=== PATIENT | male | born 1950 | race Caucasian/White ===

== ENCOUNTER → 2023-08-26 08:58 | Outpatient (REF) | payer MEDICARE, OTHER, SELFPAY ==
[2023-08-26 13:07] LABS: % Basophils 0.9 % (0-2); % Eosinophils 2.2 % (0-6); % Immature Granulocytes 0.4 % (0-0.5); % Lymphocytes 16.2 % (20.5-51.1); % Monocytes 7.8 % (1.7-9.3); % Neutrophils 72.5 % (42.2-75.2); Absolute Basophils 0.1 10^3/uL (0-0.2); Absolute Eosinophils 0.2 10^3/uL (0-0.7); Absolute Lymphocytes 1.8 10^3/uL (1.2-3.4); Absolute Monocytes 0.9 10^3/uL (0.1-0.6); Absolute Neutrophils 8.1 10^3/uL (1.4-6.5); Hematocrit 43.6 % (39.0-52.0); Hemoglobin 14.1 g/dL (13.0-18.0); Mean Corp Hgb Conc. 32.3 g/dL (33.0-37.0); Mean Corpuscular Hgb 32.6 pg (27.0-31.0); Mean Corpuscular Volume 100.7 fL (80.0-94.0); Mean Platelet Volume 10.5 fL (7.4-10.4); Nucleated Red Blood Cells % 0 % (-); Platelet Count 199 10^3/uL (130-400); Red Blood Cell Count 4.33 10^6/uL (4.70-6.10); Red Cell Dist. Width 14.1 % (11.5-14.5); White Blood Cell Count 11.2 10^3/uL (4.8-10.8)
[2023-08-26 13:35] LABS: ALT (SGPT) 41 U/L (0-50); AST (SGOT) 22 U/L (17-59); Albumin 4.5 g/dl (3.5-5.0); Alkaline Phosphatase 77 U/L (38-126); Blood Urea Nitrogen 11 mg/dl (9-20); Calcium 9.4 mg/dl (8.4-10.2); Carbon Dioxide 27 mmol/L (22-30); Chloride 106 mmol/L (98-107); Glucose 153 mg/dl (70-99); HDL Cholesterol 30 mg/dl; LDL Cholesterol, Calculated 15 mg/dl; Potassium 4.5 mmol/L (3.5-5.1); Sodium 139 mmol/L (135-145); Total Bilirubin 0.4 mg/dl (0.2-1.3); Total Cholesterol 64 mg/dl (50-199); Triglyceride 97 mg/dl (10-149); Very Low Density Lipoprotein 19 mg/dl (0-30); eGFR > 60.00
[2023-08-26 13:53] LABS: Microalbumin, Random Urine 2.6 mg/dl (0.6-1.7)
[2023-08-26 13:54] LABS: Microalbumin/creatinine Ratio 28.6 mg/g
[2023-08-26 14:05] LABS: TSH Reflex To Free T4 3.45 uIU/ml (0.47-4.68)
[2023-08-26 14:15] LABS: Glycohemoglobin (HgbA1c) 7.9 % (4.0-5.6)
== END ==
LOC: HWLAB 08:58
PROVIDERS: ATTENDING PHYSICIAN Nurse Practitioner Adult Health
DX: E11.9 Type 2 diabetes mellitus without complications (principal); K86.1 Other chronic pancreatitis; E03.8 Other specified hypothyroidism; E78.00 Pure hypercholesterolemia, unspecified
CPT/HCPCS: 36415; 80053; 80061; 82043; 82570; 83036; 84443; 85025

== ENCOUNTER → 2023-09-02 11:18 | Outpatient (REF) | payer MEDICARE, OTHER, SELFPAY ==
[2023-09-02 15:45] LABS: % Eosinophils 1.5 % (0-6); % Immature Granulocytes 0.4 % (0-0.5); % Lymphocytes 17.6 % (20.5-51.1); % Monocytes 5.2 % (1.7-9.3); % Neutrophils 74.3 % (42.2-75.2); Absolute Basophils 0.1 10^3/uL (0-0.2); Absolute Eosinophils 0.2 10^3/uL (0-0.7); Absolute Immature Granulocytes 0.1 10^3/uL (0-0.05); Absolute Lymphocytes 2.2 10^3/uL (1.2-3.4); Absolute Monocytes 0.6 10^3/uL (0.1-0.6); Absolute Neutrophils 9.2 10^3/uL (1.4-6.5); Hematocrit 42.9 % (39.0-52.0); Hemoglobin 14.5 g/dL (13.0-18.0); Mean Corp Hgb Conc. 33.8 g/dL (33.0-37.0); Mean Corpuscular Hgb 32.9 pg (27.0-31.0); Mean Corpuscular Volume 97.3 fL (80.0-94.0); Mean Platelet Volume 10.2 fL (7.4-10.4); Nucleated Red Blood Cells % 0 % (-); Platelet Count 206 10^3/uL (130-400); Red Blood Cell Count 4.41 10^6/uL (4.70-6.10); Red Cell Dist. Width 14.1 % (11.5-14.5); White Blood Cell Count 12.4 10^3/uL (4.8-10.8)
[2023-09-02 16:23] LABS: PSA, Total - Screen 0.64 ng/ml (0.0-4.0)
== END ==
LOC: HWLAB 11:18
PROVIDERS: ATTENDING PHYSICIAN Nurse Practitioner Adult Health
DX: D72.829 Elevated white blood cell count, unspecified (principal); Z12.5 Encounter for screening for malignant neoplasm of prostate
CPT/HCPCS: 36415; 85025; G0103

== ENCOUNTER → 2023-09-22 10:54 | Outpatient (REF) | payer MEDICARE, OTHER, SELFPAY | LOC: DHVS 10:54 | PROVIDERS: ATTENDING PHYSICIAN Surgery Vascular Surgery | DX: I77.811 Abdominal aortic ectasia (principal) | CPT/HCPCS: 76770 ==

== ENCOUNTER → 2023-12-05 11:27 | Outpatient (REF) | payer MEDICARE, OTHER, SELFPAY ==
[2023-12-05 15:53] LABS: % Basophils 1.2 % (0-2); % Eosinophils 1.6 % (0-6); % Immature Granulocytes 0.4 % (0-0.5); % Lymphocytes 22.6 % (20.5-51.1); % Monocytes 5.7 % (1.7-9.3); % Neutrophils 68.5 % (42.2-75.2); Absolute Basophils 0.1 10^3/uL (0-0.2); Absolute Eosinophils 0.2 10^3/uL (0-0.7); Absolute Lymphocytes 2.3 10^3/uL (1.2-3.4); Absolute Monocytes 0.6 10^3/uL (0.1-0.6); Absolute Neutrophils 6.9 10^3/uL (1.4-6.5); Hematocrit 40.2 % (39.0-52.0); Hemoglobin 13.5 g/dL (13.0-18.0); Mean Corp Hgb Conc. 33.6 g/dL (33.0-37.0); Mean Corpuscular Hgb 32.4 pg (27.0-31.0); Mean Corpuscular Volume 96.4 fL (80.0-94.0); Mean Platelet Volume 10.8 fL (7.4-10.4); Nucleated Red Blood Cells % 0 % (-); Platelet Count 198 10^3/uL (130-400); Red Blood Cell Count 4.17 10^6/uL (4.70-6.10); Red Cell Dist. Width 13.6 % (11.5-14.5); White Blood Cell Count 10.1 10^3/uL (4.8-10.8)
[2023-12-05 16:03] LABS: ALT (SGPT) 39 U/L (0-50); AST (SGOT) 22 U/L (17-59); Albumin 4.3 g/dl (3.5-5.0); Alkaline Phosphatase 66 U/L (38-126); Blood Urea Nitrogen 11 mg/dl (9-20); Calcium 9.6 mg/dl (8.4-10.2); Carbon Dioxide 25 mmol/L (22-30); Chloride 103 mmol/L (98-107); Glucose 153 mg/dl (70-99); HDL Cholesterol 32 mg/dl; LDL Cholesterol, Calculated 15 mg/dl; Potassium 4.5 mmol/L (3.5-5.1); Sodium 138 mmol/L (135-145); Total Bilirubin 0.5 mg/dl (0.2-1.3); Total Cholesterol 61 mg/dl (50-199); Total Protein 6.5 g/dl (6.3-8.2); Triglyceride 74 mg/dl (10-149); Very Low Density Lipoprotein 14 mg/dl (0-30); eGFR > 60.00
[2023-12-05 16:32] LABS: Microalbumin, Random Urine < 0.6 mg/dl (0.6-1.7); TSH Reflex To Free T4 2.39 uIU/ml (0.47-4.68)
[2023-12-06 09:07] LABS: Glycohemoglobin (HgbA1c) 7.5 % (4.0-5.6)
== END ==
LOC: HWLAB 11:27
PROVIDERS: ATTENDING PHYSICIAN Nurse Practitioner Adult Health
DX: E11.65 Type 2 diabetes mellitus with hyperglycemia (principal); E11.9 Type 2 diabetes mellitus without complications; E03.8 Other specified hypothyroidism; E78.00 Pure hypercholesterolemia, unspecified; K86.1 Other chronic pancreatitis
CPT/HCPCS: 36415; 80053; 80061; 82043; 82570; 83036; 84443; 85025

== ENCOUNTER → 2023-12-12 11:02 | Outpatient (REF) | payer MEDICARE, OTHER, SELFPAY ==
[2023-12-12 15:30] LABS: Amylase 49 U/L (30-110); Lipase 74 U/L (23-300)
[2023-12-14 20:23] LABS: CA 19-9 25 U/mL (<=35)
[2023-12-15 12:02] LABS: 24 Hour Urine Total Volume Random mL; Urine Collection Length Random hr; Urine Free Kappa Light Chains 24.25 mg/L (0.00-32.90); Urine Free Lambda Light Chains 3.39 mg/L (0.00-3.79)
[2023-12-15 21:57] LABS: Albumin 4.48 g/dL (3.75-5.01); Alpha 1 Globulin 0.32 g/dL (0.19-0.46); Alpha 2 Globulin 0.65 g/dL (0.48-1.05); SPEP IFE Reflex Not Done; Total Protein-Electrophoresis 7.4 g/dL (6.3-8.2)
== END ==
LOC: HWLAB 11:02
PROVIDERS: ATTENDING PHYSICIAN Nurse Practitioner Adult Health
DX: K86.1 Other chronic pancreatitis (principal); R63.4 Abnormal weight loss; R91.8 Other nonspecific abnormal finding of lung field; E78.00 Pure hypercholesterolemia, unspecified
CPT/HCPCS: 36415; 82150; 83521; 83690; 84155; 84156; 84165; 86301; 86335

== ENCOUNTER → 2024-03-09 10:41 | Outpatient (REF) | payer MEDICARE, OTHER, SELFPAY ==
[2024-03-09 13:58] LABS: Glycohemoglobin (HgbA1c) 7.7 % (4.0-5.6)
== END ==
LOC: HWLAB 10:41
PROVIDERS: ATTENDING PHYSICIAN Nurse Practitioner Adult Health
DX: E11.65 Type 2 diabetes mellitus with hyperglycemia (principal)
CPT/HCPCS: 36415; 83036

== ENCOUNTER → 2024-03-19 10:41 | Outpatient (REF) | payer MEDICARE, OTHER, SELFPAY | LOC: HWRAD 10:41 | PROVIDERS: ATTENDING PHYSICIAN Internal Medicine Critical Care Medicine; FAMILY PHYSICIAN Nurse Practitioner Adult Health | DX: Z87.891 Personal history of nicotine dependence (principal) | CPT/HCPCS: 71271 ==

== ENCOUNTER → 2024-03-23 14:46 | Outpatient (REF) | payer MEDICARE, OTHER, SELFPAY | LOC: HWRCS 14:46 | PROVIDERS: ATTENDING PHYSICIAN Nurse Practitioner Adult Health | DX: R01.1 Cardiac murmur, unspecified (principal) | CPT/HCPCS: 93306 ==

== ENCOUNTER → 2024-06-07 11:12 | Outpatient (REF) | payer MEDICARE, OTHER, SELFPAY ==
[2024-06-07 13:03] LABS: ALT (SGPT) 40 U/L (0-50); AST (SGOT) 21 U/L (17-59); Albumin 4.3 g/dl (3.5-5.0); Alkaline Phosphatase 58 U/L (38-126); Blood Urea Nitrogen 10 mg/dl (9-20); Calcium 8.9 mg/dl (8.4-10.2); Carbon Dioxide 25 mmol/L (22-30); Chloride 102 mmol/L (98-107); Glucose 170 mg/dl (70-99); HDL Cholesterol 35 mg/dl; LDL Cholesterol, Calculated 18 mg/dl; Potassium 4.5 mmol/L (3.5-5.1); Sodium 137 mmol/L (135-145); Total Bilirubin 0.4 mg/dl (0.2-1.3); Total Cholesterol 65 mg/dl (50-199); Total Protein 6.7 g/dl (6.3-8.2); Triglyceride 64 mg/dl (10-149); Very Low Density Lipoprotein 12 mg/dl (0-30); eGFR > 60.00
[2024-06-07 14:05] LABS: Glycohemoglobin (HgbA1c) 6.7 % (4.0-5.6)
== END ==
LOC: HWLAB 11:12
PROVIDERS: ATTENDING PHYSICIAN Nurse Practitioner Adult Health
DX: E11.65 Type 2 diabetes mellitus with hyperglycemia (principal); E03.8 Other specified hypothyroidism
CPT/HCPCS: 36415; 80053; 80061; 83036; 84443

== ENCOUNTER → 2024-10-02 09:14 | Outpatient (REF) | payer MEDICARE, OTHER, SELFPAY ==
[2024-10-02 13:54] LABS: HDL Cholesterol 38 mg/dl; LDL Cholesterol, Calculated 28 mg/dl; Total Cholesterol 84 mg/dl (50-199); Triglyceride 90 mg/dl (10-149); Very Low Density Lipoprotein 18 mg/dl (0-30)
[2024-10-02 14:08] LABS: Glycohemoglobin (HgbA1c) 6.7 % (4.0-5.6)
== END ==
LOC: HWLAB 09:14
PROVIDERS: ATTENDING PHYSICIAN Nurse Practitioner Adult Health
DX: E11.65 Type 2 diabetes mellitus with hyperglycemia (principal); E78.00 Pure hypercholesterolemia, unspecified
CPT/HCPCS: 36415; 80061; 83036

== ENCOUNTER → 2024-11-12 08:34 | Outpatient (REF) | payer MEDICARE, OTHER, SELFPAY | LOC: HWRAD 08:34 | PROVIDERS: ATTENDING PHYSICIAN Internal Medicine | DX: M54.50 Low back pain, unspecified (principal) | CPT/HCPCS: 72110 ==

== ENCOUNTER 2025-01-14 05:47 | Day surgery (SDC) | payer MEDICARE, OTHER, SELFPAY ==
--- NOTE | 2024-12-20 13:34 | CM ---
Demographics: confirmed
Living situation: Cottages at [facility], single floor living
Support Person Post Operatively:
History of
VN: Yes, currently not on service
SNF: No
Outpatient: [facility] to home
Has patient purchased required equipment: yes
PCP: Dr. bates
[facility]
Post Operative Discharge Plan: Home with , visiting PT from [facility].
[2024-12-26 13:55] VITALS: BMI 22.9
[2024-12-26 13:59] LABS: Hematocrit 39.0 % (39.0-52.0); Hemoglobin 12.9 g/dL (13.0-18.0); Mean Corp Hgb Conc. 33.1 g/dL (33.0-37.0); Mean Corpuscular Volume 99.5 fL (80.0-94.0); Platelet Count 207 10^3/uL (130-400); Red Cell Dist. Width 13.9 % (11.5-14.5)
[2024-12-26 14:47] VITALS: BMI 22.9
[2024-12-26 15:59] LABS: ALT (SGPT) 39 U/L (0-50); AST (SGOT) 19 U/L (17-59); Albumin 4.4 g/dl (3.5-5.0); Alkaline Phosphatase 55 U/L (38-126); Blood Urea Nitrogen 16 mg/dl (9-20); Calcium 9.2 mg/dl (8.4-10.2); Carbon Dioxide 25 mmol/L (22-30); Chloride 102 mmol/L (98-107); Estimated Creatinine Clearance 64 ml/min; Glucose 235 mg/dl (70-99); Potassium 4.2 mmol/L (3.5-5.1); Sodium 136 mmol/L (135-145); Total Protein 6.7 g/dl (6.3-8.2); eGFR > 60.00
[2024-12-27 09:32] LABS: Glycohemoglobin (HgbA1c) 6.8 % (4.0-5.6)
[2025-01-14] VITALS (11 sets, daily range): BP systolic 95–133; BP diastolic 46–81
[2025-01-14] MEDS: CELEBREX 200 MG PO (06:27)
[2025-01-14] MEDS: TYLENOL 650 MG PO (06:27)
[2025-01-14] MEDS: BACTROBAN NASAL 1 GRAM NASAL (06:27)
[2025-01-14] MEDS: NORMOSOL-R/PLASMALYTE-A 1000 IV ×2 (06:28→09:53)
[2025-01-14 06:35] LABS: Glucose - Point of Care 151 mg/dl (70-99)
--- NOTE | 2025-01-14 07:05 | W.DS.TRANS ---
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
-
Discharge Instructions:
Sleep Apnea Risk Low
Discharge Diagnosis/Procedures L TKA 01/14/25
Diet Diabetic, Carb Controlled
Activity With Walker
Driving Restrictions No driving
Bathing Restrictions OK to Shower
Other Services PT
Instructions:
Stand-Alone Forms: SDS Total Hip and Knee D/C
Changes to Home Medications: Yes
Discharge Medications:
DC Medications w/original date entered in [employer] [facility] [employer]
empagliflozin 25 mg tablet (Jardiance) 25 mg PO DAILY 12/25/24
fluticasone fur. 200 mcg-umeclid 62.5 mcg-vilant 25 mcg inhalat.powder (Trelegy Ellipta) 1 inh inhalation DAILY 12/25/24
levothyroxine 25 mcg tablet 25 mcg PO DAILY 12/25/24
lisinopril 2.5 mg tablet 2.5 mg PO DAILY 12/25/24
metformin 500 mg tablet 1,000 mg PO BID 12/25/24
rosuvastatin 10 mg tablet 10 mg PO DAILY 12/25/24
acetaminophen 300 mg-codeine 30 mg tablet 1 - 2 tab PO Q6H PRN moderate-severe pain #30 tabs 12/26/24
cefadroxil 500 mg capsule 500 mg PO BID #14 caps 12/26/24
mupirocin 2 % topical ointment 1 applic intranasal BID #1 tube 12/26/24
ondansetron HCl 4 mg tablet 4 mg PO Q6H PRN nausea and vomiting #30 tabs 12/26/24
celecoxib 200 mg capsule (Celebrex) 200 mg PO DAILY Anti-inflammatory #14 caps 01/01/25
Saccharomyces boulardii 250 mg capsule (Florastor) 250 mg PO BID #1 cap 01/14/25
aspirin 325 mg tablet 325 mg PO DAILY blood clot prevention #1 tab 01/14/25
docusate sodium 100 mg capsule (Colace) 100 mg PO BID stool softner #1 cap 01/14/25
magnesium hydroxide 400 mg/5 mL oral suspension (Milk of Magnesia) 30 ml PO HS PRN constipation #1 mL 01/14/25
sennosides 8.6 mg tablet (Senokot) 17.2 mg (2 x 8.6 mg) PO BID laxative #2 tabs 01/14/25
Home Medication Changes
cefadroxil 500 mg capsule 500 mg PO BID #14 caps 12/26/24
mupirocin 2 % topical ointment 1 applic intranasal BID #1 tube 12/26/24
ondansetron HCl 4 mg tablet 4 mg PO Q6H PRN nausea and vomiting #30 tabs 12/26/24
celecoxib 200 mg capsule (Celebrex) 200 mg PO DAILY Anti-inflammatory #14 caps 01/01/25
Saccharomyces boulardii 250 mg capsule (Florastor) 250 mg PO BID #1 cap 01/14/25
aspirin 325 mg tablet 325 mg PO DAILY blood clot prevention #1 tab 01/14/25
docusate sodium 100 mg capsule (Colace) 100 mg PO BID stool softner #1 cap 01/14/25
magnesium hydroxide 400 mg/5 mL oral suspension (Milk of Magnesia) 30 ml PO HS PRN constipation #1 mL 01/14/25
sennosides 8.6 mg tablet (Senokot) 17.2 mg (2 x 8.6 mg) PO BID laxative #2 tabs 01/14/25
Pending Results: No
--- NOTE | 2025-01-14 07:18 | PTCARENOTE ---
Savita Ibrahim was notified via [place] text that the patient needs a script for Physical therapy.
[2025-01-14 09:10] LABS: Glucose - Point of Care 178 mg/dl (70-99)
[2025-01-14 11:28] LABS: Glucose - Point of Care 264 mg/dl (70-99)
[2025-01-14] MEDS: ANCEF 5 IV (11:29)
--- NOTE | 2025-01-14 12:41 | CM ---
CM was updated that patient does not have a same day visit. CM spoke with Gypsy at [facility] and they are able to accept patient for today visit. CM sent referral via [facility].
== END 2025-01-14 12:22 | disposition home or self-care (01) ==
LOC: SDS 05:47
PROVIDERS: ATTENDING PHYSICIAN Specialist; FAMILY PHYSICIAN Nurse Practitioner Adult Health; OTHER PHYSICIAN Physician Assistant
DX: M17.12 Unilateral primary osteoarthritis, left knee (principal); E11.9 Type 2 diabetes mellitus without complications; K76.0 Fatty (change of) liver, not elsewhere classified; Z72.0 Tobacco use; Z86.14 Personal history of Methicillin resistant Staphylococcus aureus infection; Z86.73 Personal history of transient ischemic attack (TIA), and cerebral infarction without residual deficits
CPT/HCPCS: 27447; C1776; 36415; 73560; 80053; 82962; 83036; 85027; 87070; 93005; 97162; C1713

== ENCOUNTER → 2025-03-22 11:02 | Outpatient (REF) | payer MEDICARE, OTHER, SELFPAY | LOC: HWRAD 11:02 | PROVIDERS: ATTENDING PHYSICIAN Internal Medicine Critical Care Medicine; FAMILY PHYSICIAN Nurse Practitioner Adult Health | DX: Z87.891 Personal history of nicotine dependence (principal) | CPT/HCPCS: 36415; 71271 ==

== ENCOUNTER 2025-03-31 13:47 | Emergency (ER) | payer MEDICARE, OTHER, SELFPAY ==
[2025-03-31 13:59] VITALS: BP 127/74
[2025-03-31 14:19] LABS: Hematocrit 39.9 % (39.0-52.0); Hemoglobin 13.4 g/dL (13.0-18.0); Mean Corp Hgb Conc. 33.6 g/dL (33.0-37.0); Mean Corpuscular Volume 95.2 fL (80.0-94.0); Nucleated Red Blood Cells % 0 % (-); Platelet Count 233 10^3/uL (130-400); Red Cell Dist. Width 13.1 % (11.5-14.5)
[2025-03-31 14:21] LABS: Urine Character Slightly Cloudy (Clear)
[2025-03-31 14:39] LABS: ALT (SGPT) 26 U/L (0-50); AST (SGOT) 16 U/L (17-59); Albumin 4.4 g/dl (3.5-5.0); Alkaline Phosphatase 86 U/L (38-126); Blood Urea Nitrogen 15 mg/dl (9-20); Calcium 9.8 mg/dl (8.4-10.2); Carbon Dioxide 29 mmol/L (22-30); Chloride 102 mmol/L (98-107); Glucose 151 mg/dl (70-99); Potassium 4.7 mmol/L (3.5-5.1); Sodium 135 mmol/L (135-145); Total Protein 7.4 g/dl (6.3-8.2); eGFR > 60.00
[2025-03-31 15:10] VITALS: BMI 23.7
[2025-03-31 15:12] LABS: Urine Red Blood Cell >100 /HPF (0-2); Urine White Cell 0-2 /HPF (0-5)
--- NOTE | 2025-03-31 15:13 | ED.GENMED ---
History of Present Illness
General
Chief Complaint: Flank Pain
Source: patient
Exam Limitations: none
Time Seen by Provider: 03/31/25 15:04
History of Present Illness
History of Present Illness:
74yoM with a history of COPD, type 2 diabetes, hypertension, hyperlipidemia, and hypothyroidism presenting with his for evaluation of flank pain. Patient noticed pain in his right flank when he woke up from sleep this morning. Pain radiates
to the right lower quadrant and is described as sharp. The pain in his flank subsided about an hour ago but the pain in his right lower quadrant remains. He also reports nausea and has vomited twice. He had appendicitis several years ago which
was mild and treated with antibiotics alone. He is worried he has this again. He denies any fevers, urinary symptoms, pleuritic pain, shortness of breath, testicular pain.
Past History
Past History
ED Past Medical History: Hypercholesterolemia; Negative HTN
Social History
Tobacco: Smoker
Alcohol: None
Drug: None
Personal:
Living: with family
Employment: Employed
Family History
Family History: Hypertension
Phy Exam
General Physical Exam
General Presentation: well appearing and no apparent distress
General Skin: warm and dry
General Habitus: normal
General Mental: alert
ENT Exam
ENT Exam: normocephalic
Pulmonary Exam
Pulmonary Exam: lungs clear, no respiratory distress, no rales, no crackles, no rhonchi and no wheezing
Gastrointestinal Exam
Gastrointestinal Exam: soft, non distended, no cva tenderness and other (+Minimal tenderness in RLQ. Abdomen soft, non-distended. No rebound or guarding. No CVA tenderness.)
Neurological Exam
Neurological Exam: alert
Filomena Coma Scale
Eye Opening: Spontaneous
Verbal Response: Oriented
Motor Response: Obeys Commands
GCS Total Score: 15
Skin Exam
Skin Exam: normal color and warm/dry
Psychiatric Exam
Psychiatric Exam: normal mood/affect
Course
Orders/Labs/Results
Orders:
Orders
03/31/25 14:08
CBC/With Diff [Complete Blood Count/With Diff] Urgent
Comprehensive Metabolic Panel Urgent
03/31/25 14:10
Urinalysis Reflex To Culture Urgent
Date Specimen was Collected: 03/31/25
Time Specimen was Collected: 14:02
Urine Microscopic Reflex Cult Urgent
03/31/25 15:12
CT Abd/pelvis W/wo Iv Cont Urgent
Comment:
Reason For Exam: RLQ pain, R flank pain
0.9% Sodium Chloride 500 ml [Nss] 500 ml IV BOLUS
Abnormal Lab Results
03/31/25 03/31/25
14:08 14:10
WBC 13.2 H 10^3/uL
(4.8-10.8)
RBC 4.19 L 10^6/uL
(4.70-6.10)
MCV 95.2 H fL
(80.0-94.0)
MCH 32.0 H pg
(27.0-31.0)
Abs Immat Gran (auto) 0.1 H 10^3/uL
(0-0.05)
Absolute Neuts (auto) 10.8 H 10^3/uL
(1.4-6.5)
Absolute Monos (auto) 0.8 H 10^3/uL
(0.1-0.6)
Neutrophils % 81.7 H %
(42.2-75.2)
Lymphocytes % 11.0 L %
(20.5-51.1)
Glucose 151 H mg/dl
(70-99)
AST 16 L U/L
(17-59)
Urine Ketones 1+ A
(Negative)
Ur Occult Blood Reflex 4+ A
(Negative)
Urine RBC >100 A /HPF
(0-2)
Urine Glucose 2+ A
(Negative)
Urine Albumin (Reflex) 2+ A
(Neg - Trace)
03/31/25 14:08
03/31/25 14:08
Vital Signs
Initial and Last Documented VS:
Initial Vital Signs
Temp Pulse Resp BP Pulse Ox
97.7 F 79 16 127/74 98
03/31/25 13:59 03/31/25 13:59 03/31/25 13:59 03/31/25 13:59 03/31/25 13:59
Last Documented Vital Signs
Temp Pulse Resp BP Pulse Ox
97.7 F 79 16 126/74 100
03/31/25 13:59 03/31/25 13:59 03/31/25 13:59 03/31/25 18:42 03/31/25 18:45
MDM/Problems Addressed
Differential Diagnosis Includes:
74yoM here with R flank pain radiating to RLQ that began this morning. Associated with n/v. Pain now improved. Hx of appendicitis that was managed non-operatively and he is worried he has this again. VSS. He is well appearing in no distress. Minimal
RLQ tenderness on exam without signs of peritonitis. Differential diagnosis includes but is not limited to: kidney stone, pyelonephritis, appendicitis, less likely but consider AAA
Initial ED plan: Workup initiated in triage. White count is 13.2 which is nonspecific. Renal function normal. UA with >100 RBCs without signs of infection. Will check CT abdomen w/wo contrast. IV fluid bolus. He declines analgesics.
*Pulse Oximetry
SaO2: 98
Oxygen Mode of Delivery: Room air
Patient hypoxic: no
*Critical Care Note
Total Time (30-74mins, 75-104mins- exclusive of procedures): Not Applicable
Update Note
Update Note:
CT shows a 3 mm distal R ureteral stone with mild hydronephrosis. Appendix within normal limits. Patient feeling well on reassessment and has not required any pain medications throughout ED stay. He is stable for discharge. Patient already
taking Flomax. Supportive care discussed including hydration and urine straining. Offered prescriptions for pain medication which he declines. Advised f/u with urology and strict ED return precautions reviewed. Patient discharged in stable
condition.
ED Attending Note
-
Portions of this chart may have been created with voice recognition software.� Occasional wrong word or��sound alike� substitutions may have occurred due to the inherent limitations of voice recognition software.
Discharge Plan
Departure
Patient Disposition: Home (Routine Discharge)
Date of Disposition: 03/31/25
Time of Disposition: 18:49
Patient with high blood pressure during this ER visit?: No
Discharge Problem:
Calculus of distal right ureter
Instructions: Kidney Stones (DC), How to Strain Your Urine
Prescriptions:
No Action
metformin 500 mg Tablet
1,000 mg PO BID
levothyroxine 25 mcg Tablet
25 mcg PO DAILY
lisinopril 2.5 mg Tablet
2.5 mg PO DAILY
rosuvastatin 10 mg Tablet
10 mg PO DAILY
Jardiance 25 mg Tablet
25 mg PO DAILY
Trelegy Ellipta 200-62.5-25 mcg Blister With Device
1 inh INHALATION DAILY
acetaminophen-codeine 300-30 mg tablet
1 - 2 tab PO Q6H PRN (Reason: moderate-severe pain) Qty: 30 0RF
Rx Instructions:
1 tab for moderate pain, 2 if severe.
Dx TKA
ondansetron HCl 4 mg tablet
4 mg PO Q6H PRN (Reason: nausea and vomiting) Qty: 30 0RF
cefadroxil 500 mg capsule
500 mg PO BID Qty: 14 0RF
Rx Instructions:
Start night of discharge and continue twice a day until finished.
Take with probiotic.
mupirocin 2 % ointment
1 applic intranasal BID Qty: 1 0RF
celecoxib [Celebrex] 200 mg capsule
200 mg PO DAILY Qty: 14 0RF
Rx Instructions:
Take with food.
DO NOT take within 2 hours of Aspirin post-surgery.
sennosides [Senokot] 8.6 mg tablet
17.2 mg PO BID Qty: 2 0RF
aspirin 325 mg tablet
325 mg PO DAILY Qty: 1 0RF
Rx Instructions:
Take with food
magnesium hydroxide [Milk of Magnesia] 400 mg/5 mL suspension
30 ml PO HS PRN (Reason: constipation) Qty: 1 0RF
Rx Instructions:
CONTINUE colace W/senokot-if no bowel movement 1 day POST-OP -add milk of mag
docusate sodium [Colace] 100 mg capsule
100 mg PO BID Qty: 1 0RF
Saccharomyces boulardii [Florastor] 250 mg capsule
250 mg PO BID Qty: 1 0RF
Referrals:
Jayson Dukes MD [Active, Urology]
Tasia Mejía CRNP [Family Provider, General]
Activity Restrictions/Additional Instructions:
Drink plenty of fluids. Strain your urine until stone has passed. You may take Tylenol or ibuprofen as needed for the pain.
Please call the urology office tomorrow to schedule a follow-up appointment. Return to the ER with any new or worsening symptoms including fevers or uncontrolled pain/vomiting.
Interventions
Interventions:
*Risk Screen - Suicide Last Done: 03/31/25 13:59
*General Assessment Last Done: 03/31/25 15:10
*Neglect/Abuse Screening Last Done: 03/31/25 13:59
*ED- Fall Risk Assessment Last Done: 03/31/25 15:10
*ED COVID-19 Vaccine History Last Done: 03/31/25 15:10
*ED Influenza Vaccine History Last Done: 03/31/25 15:10
*Nursing Disposition Last Done: 03/31/25 19:08
TV-Didmpf-Nteztwhdut Assessment Last Done: 03/31/25 15:10
ED-Male Genitourinary Assessment Last Done: 03/31/25 15:10
Discharge Date and Time
Discharge Date/Time: 03/31/25 19:08
Print Language: FILIPINO
[2025-03-31] MEDS: NSS 500 IV (15:19)
[2025-03-31 18:42] VITALS: BP 126/74
== END 2025-03-31 19:08 | disposition home or self-care (01) ==
LOC: EMR 13:47
PROVIDERS: Emergency Medicine; EMERGENCY PHYSICIAN Emergency Medicine; FAMILY PHYSICIAN Nurse Practitioner Adult Health
DX: N13.2 Hydronephrosis with renal and ureteral calculous obstruction (principal); E11.9 Type 2 diabetes mellitus without complications; I10 Essential (primary) hypertension; E78.00 Pure hypercholesterolemia, unspecified; J44.9 Chronic obstructive pulmonary disease, unspecified; E03.9 Hypothyroidism, unspecified; F17.200 Nicotine dependence, unspecified, uncomplicated; Z79.84 Long term (current) use of oral hypoglycemic drugs; Z87.19 Personal history of other diseases of the digestive system; Z82.49 Family history of ischemic heart disease and other diseases of the circulatory system
CPT/HCPCS: 99284; 96360; 74178; 80053; 81003; 81015; 85025; Q9967